=== PATIENT | female | born 1960 | race Caucasian/White ===

== ENCOUNTER 2025-11-13 08:27 | Day surgery (SDC) | payer BC ==
[2025-11-12 11:59] VITALS: BMI 19.3
[2025-11-13 09:22] LABS: Hematocrit 39.6 % (34.9-44.5)
[2025-11-13] MEDS ORDERED: PROPOFOL 20 ML ONE (10:18)
[2025-11-13] MEDS ORDERED: Ondansetron PF 4 MG/2 ML Vial ONE (10:18)
[2025-11-13] MEDS ORDERED: Bacitracin 1 PK ONE (10:43)
[2025-11-13] MEDS ORDERED: Lidocaine 1% w/Epinephrine 1:200K 30 ML VIAL ONE (10:43)
== END 2025-11-13 14:00 | disposition home or self-care (01) ==
LOC: CSHSDC 08:27
PROVIDERS: ATTEND Specialist
PROC: 0HB1XZZ Excision of Face Skin, External Approach (ICD-10-PCS; principal; 2025-11-13)
DX: L90.5 Scar conditions and fibrosis of skin (principal); Z90.49 Acquired absence of other specified parts of digestive tract; Z88.8 Allergy status to other drugs, medicaments and biological substances
CPT/HCPCS: 36415; 85014; 88305; 93005; 93010; J1100; J2250; J2405; J2704; J3010